=== PATIENT | male | born 1970 | race Caucasian/White ===

== ENCOUNTER 2020-04-16 13:40 | Emergency (ER) | payer SELFPAY ==
[~2020-04-16] VITALS: Ht 172.7 cm; Wt 81.6 kg
[2020-04-16 14:03] VITALS: Ht 172.7 cm; Wt 81.6 kg
[2020-04-16 14:49] LABS: CALCIUM 7.9 mg/dL (8.5-10.1); CARBON DIOXIDE 25.5 mmol/L (21-32); CHLORIDE SERUM 103 mmol/L (98-107); CREATININE SERUM 0.8 mg/dL (0.7-1.3); GFR1 > 60 mL/min; GLUCOSE SERUM 97 mg/dL (74-106); POTASSIUM SERUM 3.4 mmol/L (3.5-5.1); SODIUM SERUM 144 mmol/L (136-145)
[2020-04-16 14:52] LABS: PLATELET COUNT 126 x10^3mcL (130-400); RED CELL DISTRIBUTION WIDTH 16.8 % (11.5-14.5)
[2020-04-16 14:53] LABS: ALBUMIN 3.9 g/dL (3.4-5.0); ALKALINE PHOSPHATASE 85 U/L (46-116); ALT/SGPT 462 U/L (16-63); AST/SGOT 567 U/L (15-37); BILIRUBIN TOTAL 0.9 mg/dL (0.20-1.00); TOTAL PROTEIN, SERUM 7.4 g/dL (6.4-8.2)
[2020-04-16 15:10] LABS: BAND NEUTROPHIL 1 % (0-10); BASOPHIL 0 % (0-2); MONOCYTE 7 % (0-7); SEGMENTED NEUTROPHILS 68 % (37-75)
[2020-04-16 15:11] LABS: rbc morphology (normal/abnorm) NORMAL (NORMAL)
[2020-04-16 15:12] LABS: PLATELET MORPHOLOGY PLATELETS NORMAL
[2020-04-16 16:55] VITALS: BP 128/78
[2020-04-16 17:19] LABS: microscopic required? YES; urine erythrocyte 2+ (NEGATIVE)
[2020-04-16 17:29] LABS: AMPHETAMINE QUAL UR NONE DETECTED (See below)
[2020-04-16 18:14] LABS: CHOLESTEROL/HDL RATIO 3.8; MAGNESIUM 2.3 mg/dL (1.8-2.4); PHOSPHOROUS 3.3 mg/dL (2.5-4.9)
== END 2020-04-16 16:55 | disposition left against medical advice (07) ==
LOC: ED 13:40 → DU 16:35
PROVIDERS: Emergency Medicine; Family Medicine
DX: R07.89 Other chest pain (principal); I10 Essential (primary) hypertension
CPT/HCPCS: 83880; J1885; J7030; Q0092